=== PATIENT | male | born 1980 | race Caucasian/White ===

== ENCOUNTER 2018-10-22 22:14 | Emergency (ER) | payer SELFPAY ==
[~2018-10-22] VITALS: Ht 170.2 cm; Wt 97.5 kg
[2018-10-22 22:19] VITALS: Ht 170.2 cm; Wt 97.5 kg
[2018-10-23 00:17] VITALS: BP 120/77
== END 2018-10-23 00:10 | disposition home or self-care (01) ==
LOC: ED 22:14
DX: J02.9 Acute pharyngitis, unspecified (principal); L98.9 Disorder of the skin and subcutaneous tissue, unspecified
CPT/HCPCS: J1100; J1885

== ENCOUNTER 2019-08-10 17:01 | Emergency (ER) | payer MEDICAID ==
[~2019-08-10] VITALS: Ht 170.2 cm; Wt 97.5 kg
[2019-08-10 18:38] LABS: BASOPHIL % 0.3 % (0-2); PLATELET COUNT 279 x10^3mcL (130-400); RED CELL DISTRIBUTION WIDTH 13.6 % (11.5-14.5)
[2019-08-10 18:50] LABS: CALCIUM 9.5 mg/dL (8.5-10.1); CARBON DIOXIDE 26.6 mmol/L (21-32); CHLORIDE SERUM 107 mmol/L (98-107); CREATININE SERUM 0.9 mg/dL (0.7-1.3); GFR1 > 60 mL/min; GLUCOSE SERUM 93 mg/dL (74-106); POTASSIUM SERUM 3.9 mmol/L (3.5-5.1); SODIUM SERUM 142 mmol/L (136-145)
[2019-08-10 18:56] LABS: ALBUMIN 4.6 g/dL (3.4-5.0); ALKALINE PHOSPHATASE 62 U/L (46-116); ALT/SGPT 45 U/L (16-63); AST/SGOT 38 U/L (15-37); BILIRUBIN TOTAL 0.3 mg/dL (0.20-1.00); LIPASE 119 IU/L (73-393)
[2019-08-10 19:02] LABS: TOTAL PROTEIN, SERUM 8.6 g/dL (6.4-8.2)
[2019-08-10 23:44] LABS: AMPHETAMINE QUAL UR NONE DETECTED (See below)
[2019-08-11 01:02] VITALS: BP 132/85
== END 2019-08-11 01:02 | disposition home or self-care (01) ==
LOC: ED 17:01
PROVIDERS: Emergency Medicine
DX: R07.81 Pleurodynia (principal); R09.1 Pleurisy; I10 Essential (primary) hypertension
CPT/HCPCS: 87804; J1885; J2405